=== PATIENT | female | born 1950 | race Caucasian/White ===

== ENCOUNTER 2022-10-12 06:09 | Observation (INO) | payer MEDICARE, OTHER, BC, SELFPAY ==
[2022-10-12] VITALS (13 sets, daily range): BP systolic 112–165; BP diastolic 69–89; PULSE 55–75; RESP 12–18; TEMP 36.3–37.1; O2SAT 94–96; BMI 30.2
--- NOTE | 2022-10-12 06:25 | XRR_ITS ---
PROCEDURE INFORMATION: Exam: XR Chest Exam date and time: 10/12/2022 6:32 AM Age: 72 years old Clinical indication: Cough and dyspnea; Additional info: Dyspnea/cough TECHNIQUE: Imaging protocol: Radiologic exam of the chest. Views: 1 view. COMPARISON: CT cervical spin wo con* [id number] 12/27/2018 10:15 AM FINDINGS: Tubes, catheters and devices: Monitor leads project over the chest. Lungs: No significant or acute findings. No consolidation. Pleural spaces: No significant costophrenic angle blunting. No pneumothorax. Heart/Mediastinum: Heart size within normal limits given the portable AP technique. Vasculature: Mild atherosclerotic tortuosity of the thoracic aorta. Bones/joints: No acute osseous abnormality. Soft tissues: Peripherally calcified bilateral breast implants. XR/XR chest 1V portable [id number] IMPRESSION: No acute abnormality demonstrated.
--- NOTE | 2022-10-12 06:35 | ED_ITS ---
HPI - Arrhythmia/Palpitations General: Chief Complaint: Arrhythmia/Palpitations Stated Complaint: FAST HEART RATE Time Seen by Provider: 10/12/22 06:13 Source: patient Mode of arrival: ambulatory History of Present Illness: 72-year-old female presents emergency room via EMS after waking up early this morning with chest discomfort. She had palpitations or rapid heart rate that she was very uncomfortable she ultimately called EMS. Today reports she had a rate of 170s. She was given adenosine x3 uncertain of the doses. She was then given 10 mg of IV Cardizem. Initial heart rate in the field was 170s with blood pressure in the 140 systolic. Patient reports previously having had a negative stress test. She is having no symptoms at this time. MD complaint: rapid heart beat, heart racing and palpitations Duration: constant Severity: moderate Associated symptoms: Deny anxiety, cough, diaphoresis, muscle cramps, nausea, paresthesias, pre-syncope, sense of impending doom, short of breath, syncope or vomiting Treatments prior to arrival: calcium channel emely (10) and adenosine (07/24/11) Review of Systems Const: Denies: fever(s), chills or diaphoresis Card: Reports: palpitations and irregular heart rhythm; Denies: chest pain, edema, swelling of feet/ankles, syncope or pre-syncope Resp: Denies: dyspnea, productive cough or non-productive cough GI: Denies: abdominal pain, nausea or vomiting : Denies: flank pain, difficulty voiding, dysuria, urinary frequency or urinary urgency Musc: Denies: neck pain, back pain or muscle cramps Skin/Breast: Denies: rash or pruritus Psych: Denies: anxiety Physical Exam Const: GENERAL APPEARANCE: cooperative and comfortable DIONICIO ENTATION/CONSCIOUSNESS: Yes awake, Yes oriented to person, Yes oriented to place and Yes oriented to time HENMT: COMMON NORMALS: normocephalic, atraumatic and hearing grossly normal bilaterally HEAD & SCALP: normocephalic and atraumatic Resp: COMMON NORMALS: normal respiratory effort, No retractions, No use of accessory muscles and clear to auscultation bilaterally AUSCULTATION: clear to auscultation bilaterally Cardio: COMMON NORMALS: No murmurs present (Cardio) RATE: bradycardic RHYTHM: abnormal rhythm irregularly irregular GI: COMMON NORMALS: Soft to palpation and No hepatosplenomegaly present AUSCULTATION: Yes normoactive bowel sounds PALPATION: Yes Soft to palpation, No Tenderness to palpation present (GI), No Guarding due to palpation present (GI) and Yes No hepatosplenomegaly present Extremity: COMMON NORMALS: normal to inspection, capillary refill normal, no clubbing, cyanosis or edema, no calf tenderness and no pedal edema Neuro: SENSORIUM/ORIENTATION: Yes oriented to person, Yes oriented to place and Yes oriented to time Skin: COMMON NORMALS: no rashes or lesions noted GENERAL SKIN EXAM: no ilya hes or lesions noted Course Vital Signs: Vital signs: Vital Signs Temperature 98.7 F 10/12/22 06:10 Pulse Rate 74 10/12/22 07:02 Respiratory Rate 16 10/12/22 07:02 Blood Pressure 117/81 10/12/22 07:02 Pulse Oximetry 95 10/12/22 07:02 MDM - Arrhythmia/Palpitations Medical Decision Making A-fib with RVR now bradycardic after receiving adenosine and Cardizem in route. Will admit for further evaluation monitoring for rate control determination for anticoagulation. Discussed with hospitalist orders written Medical Records I reviewed the patient's medical records. Lab Data I reviewed the patient's lab results. 10/12/22 06:18 10/12/22 07:06 Radiology Impressions Chest X-Ray 10/12/22 06:25 IMPRESSION: No acute abnormality demonstrated. Laboratory Results WBC 6.47 10^3/uL (3.29-11.43) 10/12/22 06:18 RBC 4.96 10^6/uL (3.85-5.65) 10/12/22 06:18 Hgb 14.30 g/dL (11.27-16.99) 10/12/22 06:18 Hct 43.2 % (36-47) 10/12/22 06:18 MCV 87.1 fl (85-98) 10/12/22 06:18 MCH 28.8 pg (27-33) 10/12/22 06:18 MCHC 33.1 g/dL (30-55) 10/12/22 06:18 RDW 12.7 % (12.1-15.1) 10/12/22 06:18 Plt Count 197 10^3/cmm (157-399) 10/12/22 06:18 MPV 11.7 fL (7.4-10.4) H 10/12/22 06:18 Neut % (Auto) 52.3 % 10/12/22 06:18 Lymph % (Auto) 34.6 % 10/12/22 06:18 [place] % (Auto) 8.8 % 10/12/22 06:18 Eos % (Auto) 2.9 % 10/12/22 06:18 Baso % (Auto) 0.9 % 10/12/22 06:18 Neut # (Auto) 3.38 10^3/uL (1.8-7.7) 10/12/22 06:18 Lymph # (Auto) 2.2 10^3/uL (0.8-4.8) 10/12/22 06:18 [place] # (Auto) 0.6 10^3/uL (0.2-0.9) 10/12/22 06:18 Eos # (Auto) 0.2 10^3/uL (0.0-0.8) 10/12/22 06:18 Baso # (Auto) 0.1 10^3/uL (0.0-0.1) 10/12/22 06:18 Nucleated RBC % (auto) 0 % 10/12/22 06:18 Nucleated RBCs # 0.0 /100WBC 10/12/22 06:18 Sodium 139 mmol/L (136-145) 10/12/22 07:06 Potassium 3.9 mmol/L (3.5-5.1) 10/12/22 07:06 Chloride 106 mmol/L (98-107) 10/12/22 07:06 Carbon Dioxide 23 mmol/L (22-29) 10/12/22 07:06 Anion Gap 13.9 (5-19) 10/12/22 07:06 BUN 21 mg/dL (8-23) 10/12/22 07:06 Creatinine 0.7 mg/dL (0.5-0.9) 10/12/22 07:06 GFR Calculation Not Reportable 10/12/22 07:06 Glucose 121 mg/dL (65-115) H 10/12/22 07:06 Calculated Osmolality 292 mOsm/kg (285-295) 10/12/22 07:06 Calcium 9.5 mg/dL (8.5-10.5) 10/12/22 07:06 Total Bilirubin 0.4 mg/dL (0.15-1.2) 10/12/22 07:06 AST 16 U/L (0-32) 10/12/22 07:06 ALT 16 U/L (0-33) 10/12/22 07:06 Alkaline Phosphatase 57 U/L (35-105) 10/12/22 07:06 Troponin T Baseline 25 ng/L (0-10) H 10/12/22 06:18 NT-Pro-B Natriuret Pep 161 pg/mL (0-125) H 10/12/22 07:06 Total Protein 6.2 g/dL (6.6-8.7) L 10/12/22 07:06 Albumin 4.2 g/dL (3.5-5.2) 10/12/22 07:06 Globulin 2.0 g/dL (1.3-4.6) 10/12/22 07:06 TSH 2.98 uIU/mL (0.27-4.20) 10/12/22 07:06 Discharge Plan Discharge Patient Disposition: Placed in Observation Clinical Impression: Atrial fibrillation Coding Level of Care Code ED [employer] Professional for [employer] Rosado
[2022-10-12 06:44] LABS: Basophils # 0.1 10^3/uL (0.0-0.1); Basophils % 0.9 %; Eosinophils # 0.2 10^3/uL (0.0-0.8); Eosinophils % 2.9 %; Hematocrit 43.2 % (36-47); Lymphocytes # 2.2 10^3/uL (0.8-4.8); Lymphocytes % 34.6 %; Mean Corpuscular HGB Conc 33.1 g/dL (30-55); Mean Corpuscular Hemoglobin 28.8 pg (27-33); Mean Corpuscular Volume 87.1 fl (85-98); Mean Platelet Volume 11.7 fL (7.4-10.4); Monocytes # 0.6 10^3/uL (0.2-0.9); Monocytes % 8.8 %; Neutrophils # 3.38 10^3/uL (1.8-7.7); Neutrophils % 52.3 %; Nucleated Red Blood Cells % 0 %; Platelet Count 197 10^3/cmm (157-399); Red Blood Count 4.96 10^6/uL (3.85-5.65); Red Cell Distribution Width 12.7 % (12.1-15.1); White Blood Count 6.47 10^3/uL (3.29-11.43)
[2022-10-12 07:15] LABS: Troponin(5th) Baseline 25 ng/L (0-10)
[2022-10-12 08:05] LABS: Alanine Aminotransferase 16 U/L (0-33); Albumin Level 4.2 g/dL (3.5-5.2); Alkaline Phosphatase 57 U/L (35-105); Anion Gap 13.9 (5-19); Aspartate Amino Transferase 16 U/L (0-32); Blood Urea Nitrogen 21 mg/dL (8-23); Calcium 9.5 mg/dL (8.5-10.5); Carbon Dioxide 23 mmol/L (22-29); Chloride 106 mmol/L (98-107); Creatinine Clr Calc Pharmacy 59.3201; Glucose 121 mg/dL (65-115); NT Pro B Type Natriuretic Pept 161 pg/mL (0-125); Osmolality Calculated 292 mOsm/kg (285-295); Potassium 3.9 mmol/L (3.5-5.1); Sodium 139 mmol/L (136-145); Thyroid Stimulating Hormone 2.98 uIU/mL (0.27-4.20); Total Bilirubin 0.4 mg/dL (0.15-1.2); Total Protein 6.2 g/dL (6.6-8.7)
--- NOTE | 2022-10-12 08:26 | ECG_ITS ---
[facility] Test Date: 2022-10-12 Pat Name: Lindsey Khan Department: Room: Gender: Female Vice President Lending: : 1950 Requested By: Antonio Caal Order Number: [id number] Yudy MD: Seth Ovalles M.D. Measurements Intervals [place] Rate: 53 P: 20 SD: 146 QRS: -15 QRSD: 86 T: 83 QT: 402 QTc: 380 Interpretive Statements SINUS BRADYCARDIA ANTEROSEPTAL MYOCARDIAL INFARCTION , OF INDETERMINATE AGE [40+ ms Q WAVE IN V1-V4] No previous ECG available for comparison Electronically Signed On 10-12-2022 14:45:08 CDT by Seth Ovalles M.D. [email or web address]
[2022-10-12 08:42] LABS: Troponin 5 2HR 35.67 ng/L (0-10)
[2022-10-12 08:47] LABS: Troponin 5 2HR Delta 10.67 ABS# (0-10)
[2022-10-12] MEDS: aspirin 81 mg Chew Tablet 324 MG PO (09:23)
[2022-10-12] MEDS: enoxaparin 80 mg/0.8 mL Syringe SUBCUT (09:24)
--- NOTE | 2022-10-12 09:25 | PC.NURSE ---
PT DENIES HAVING ANY SKIN ISSUES BESIDES SOME BUG BITES ON RIHT LEG. PT STATES SHE GOT INTO SOME TICKS.
[2022-10-12 12:33] LABS: Troponin 5 6HR 38.27 ng/L (0-10)
[2022-10-12 12:37] LABS: Troponin 5 6HR Delta 13.27 ng/L (0-12)
--- NOTE | 2022-10-12 12:39 | ECG_ITS ---
[facility] Test Date: 2022-10-12 Pat Name: Lindsey Khan Department: Room: 111 Gender: Female Anesthesiology Faculty: : 1950 Requested By: Antonio Caal Order Number: [id number] Yudy MD: Seth Ovalles M.D. Measurements Intervals [place] Rate: 60 P: 46 VA: 150 QRS: 66 QRSD: 93 T: -15 QT: 428 QTc: 429 Interpretive Statements SINUS RHYTHM POSSIBLE ANTERIOR MYOCARDIAL INFARCTION , OF INDETERMINATE AGE [30 ms Q WAVE IN V3/V4, OR R < 0.2 mV IN V4] Compared to ECG 10/12/2022 08:48:32 Sinus bradycardia no longer present Myocardial infarct finding still present Electronically Signed On 10-12-2022 14:44:53 CDT by Seth Ovalles M.D. [id number]
--- NOTE | 2022-10-12 12:43 | USCV_ITS ---
Lindsey Khan Age: 72 Gender: F : 1950 Exam Date: 10/12/2022 13:37 Ordering Phys: Brenda Mcgrath MD Technologist: Bonifacio Appiah Exam Location: [facility] [place] Indication: afib BP: 124 / 76 HR: 57 Rhythm: Sinus Technical Quality: Adequate MEASUREMENTS (Male / Female) Normal Values 2D ECHO LVOT Diameter 2.0 cm LV Ejection Fraction MOD 2C 68.3 % LV Ejection Fraction 2C AL 68.4 % LA Diameter 3.5 cm LA Width 3.9 cm LA Height 5.2 cm RA Width 3.1 cm RA Height 5.0 cm Aorta at Sinotubular Diameter 2.6 cm IVC Diameter 1.8 cm M-MODE Aortic Annulus Diameter 2.8 cm LA Ao Ratio MM 1.2 MV E Point Septal Separation 0.4 cm DOPPLER AV Peak Velocity 146.0 cm/s LVOT Peak Velocity 126.0 cm/s AV Area Cont Eq vti 2.5 cm squared AV Area Cont Eq pk 2.7 cm squared MV Peak Velocity 98.0 cm/s MV Area PHT 4.0 cm squared Mitral E to A Ratio 0.6 MV E' Velocity 28.0 cm/s Mitral E to MV E' Ratio 9.1 Mitral E to LV E' Lateral Ratio 8.6 Mitral E to LV E' Septal Ratio 9.8 TR Peak Velocity 279.2 cm/s TR Peak Gradient 31.2 mmHg TR Mean Velocity 202.3 cm/s TR Mean Gradient 19.2 mmHg TR Velocity Time Integral 76.7 cm Right Atrial Pressure 3.0 mmHg Pulmonary Artery Systolic Pressu 34.2 mmHg PV Peak Velocity 83.0 cm/s RV Acceleration Time 0.1 s RV Ejection Time 0.3 s RV AcT/ET 0.5 FINDINGS Left Ventricle Left ventricle is normal in size. LV systolic function is normal with EF of 55-60%. No regional wall motion abnormalities. Grade 1 diastolic dysfunction Right Ventricle Normal in size and function Right Atrium Normal in size Left Atrium Dilated Mitral Valve Structurally normal mitral valve. Trace mitral regurgitation. Aortic Valve Grossly normal. No significant stenosis. Mild to moderate aortic regurgitation. Tricuspid Valve Trace tricuspid regurgitation. Insufficient TR jet to calculate RVSP Pulmonic Valve Not well visualized. Mild pulmonic regurgitation. Pericardium Normal Aorta Normal in size IVC Appears to be normal CONCLUSIONS LV systolic function is normal with EF of 55 to 60%. Grade 1 diastolic dysfunction. Left atrial dilation Trace mitral regurgitation Mild to moderate aortic regurgitation Trace tricuspid regurgitation Mild pulmonic regurgitation No comparison studies are available Seth Ovalles MD (Electronically Signed) Final Date: 12 October 2022 16:47 S
[2022-10-12 13:09] LABS: Chol HDL Ratio 2.73 mg/dL (0.0-4.40); Cholesterol 180 mg/dL (0-200); HDL Cholesterol 66 mg/dL (60-100); LDL Cholesterol Calculated 95 mg/dL (50-129); LDL HDL Ratio 1.44 RATIO (0.00-3.22); Triglycerides 94 mg/dL (0-150)
[2022-10-12 13:27] LABS: Estmated Average Glucose 117; Hemoglobin A1C 5.7 % (4.0-6.0)
--- NOTE | 2022-10-12 15:19 | PM.HP ---
Providers/Chief Complaint Admitting Physician: Brenda Mcgrath MD Primary Care Provider: PETE Sutton Chief Complaint: FAST HEART RATE History of Present Illness Patient seen and examined at 11 AM this morning. Lindsey Khan is a 72 year old female with no significant known past medical history who presented to the emergency room today after developing chest discomfort and palpitations last night. Patient states that she was asleep, woke up and felt a funny sensation in her chest. Describes it as pressure. She tried to change her position but symptoms did not improve. Got up and walked to the bathroom hoping to find some relief but symptoms continued to persist. She felt that her upper body felt jellylike at this time and the back of her neck was hurting. EMS was called and upon arrival they found her to have a heart rate of 180 bpm and a pressure of 1 70-1 80 systolic. Rhythm was reportedly atrial fibrillation. She received 3 doses of adenosine and a push of Cardizem and was then brought into the emergency room. Here she was found to have sinus bradycardia with heart rate ranging between 45 to 58 bpm. She does not have any known past history of atrial fibrillation. Does not have any past history of CAD. She reports she has not had any similar episodes to the one last night, however in the past she has occasionally felt pinching sensation in her chest over the past year at least 2-3 times. On 1 such episode she was working outdoors and started experiencing chest discomfort and some palpitations. She came indoors and lay down to rest which appeared to have abated her symptoms. No history of hypertension. No history of diabetes mellitus or known dyslipidemia. No history of stroke. No history of CHF. She has not been recently ill. No URI type symptoms. No cough chest pain dyspnea. No lower extremity edema. No past history of PE. Symptoms appear to have resolved with controlling her heart rate. Review of Systems General: Reports: 10 or more systems reviewed and unremarkable except in HPI and below Const: Denies: fever(s), chills or body aches Eyes: Denies: change in vision, blurry vision or photophobia ENMT: Reports: hoarseness; Denies: throat pain, enlarged tonsils, odynophagia or nasal congestion Card: Denies: chest pain, palpitations, irregular heart rhythm, edema, swelling of feet/ankles, lightheadedness, pre-syncope, dyspnea on exertion or orthopnea Resp: Denies: dyspnea, productive cough, non-productive cough, wheezing, stridor, pain on inspiration, change in phlegm color, hemoptysis or chest congestion GI: Denies: abdominal pain, nausea, vomiting, hematemesis, coffee ground emesis, dysphagia, heartburn, diarrhea, constipation, GI cramping, change in stool character, hematochezia or melena : Denies: flank pain, difficulty voiding, dysuria, urinary frequency, urinary urgency, urinary hesitancy or hematuria Musc: Denies: neck pain, back pain, extremity pain, joint swelling, joint warmth or deformity Neuro: Denies: headache(s), numbness in extremities, weakness in extremities, sensory changes, difficulty walking, frequent falls, dizziness, vertigo, behavioral changes, Slurred speech present or seizure-like activity Psych: Denies: anxiety, depression, suicidal ideation or homicidal ideation Endo: Denies: polyuria, polydipsia, tired all the time, cold intolerance or hot flashes Jayy/Lymph: Denies: easy bruising or easy bleeding Medications/Allergies Home Medications Medication Instructions Recorded Confirmed Last Taken Type aspirin 81 mg tablet,delayed 81 mg PO DAILY 10/12/22 10/12/22 10/11/22 History release multivitamin 1 tab PO DAILY 10/12/22 10/12/22 10/11/22 History Allergies Allergy/AdvReac Type Severity Reaction Status Date / Time No Known Allergies Allergy Unverified 10/12/22 07:17 Vitals/I&O/Wt Last Vital Signs Temp 98.7 F 10/12/22 06:10 Pulse 58 L 10/12/22 14:14 Resp 12 10/12/22 12:14 BP 124/76 10/12/22 12:14 Pulse Ox 96 10/12/22 14:14 O2 Del Method Room Air 10/12/22 14:14 Weight last 48 hrs Weight 74.843 kg Physical Exam Narrative: General: No acute distress, AO x3 HEENT: PERRLA, pupils bilaterally equal and reactive, pallors not present Chest: Normal vesicular breath sounds, no added sounds, equal good air entry bilaterally CVS: S1-S2 regular, no murmurs, no tachycardia, no gallops, no rubs Abdomen: Soft, nontender, no organomegaly, bowel sounds present Neuro: No focal deficits, no facial deformity, AO x3, power 5/5 in all limbs Data 10/12/22 06:18 10/12/22 07:06 Other Labs: [facility] [address] [place] [address] XRay Report Signed Patient: Lindsey Khan Unit #: [id number] : 1950 Age/Sex: 72 / F ADM Date: 10/12/22 Loc: ER Room/Bed: Attending Dr: Ordering Provider/Ordering MD: Antonio Dunn DO Date of Service: 10/12/22 Procedure(s): XR chest 1V portable [id number] Accession Number(s): [id number] Report Number: [id number] PROCEDURE INFORMATION: Exam: XR Chest Exam date and time: 10/12/2022 6:32 AM Age: 72 years old Clinical indication: Cough and dyspnea; Additional info: Dyspnea/cough TECHNIQUE: Imaging protocol: Radiologic exam of the chest. Views: 1 view. COMPARISON: CT cervical spin wo con* [id number] 12/27/2018 10:15 AM FINDINGS: Tubes, catheters and devices: Monitor leads project over the chest. Lungs: No significant or acute findings. No consolidation. Pleural spaces: No significant costophrenic angle blunting. No pneumothorax. Heart/Mediastinum: Heart size within normal limits given the portable AP technique. Vasculature: Mild atherosclerotic tortuosity of the thoracic aorta. Bones/joints: No acute osseous abnormality. Soft tissues: Peripherally calcified bilateral breast implants. XR/XR chest 1V portable [id number] IMPRESSION: No acute abnormality demonstrated. ? A&P Assessment and plan (1) Atrial fibrillation: Patient presenting today with new onset A-fib, presenting with chest discomfort, palpitations. A-fib detected in the field in route to the ER she received 3 pushes of adenosine and then 1 dose of 10 mg IV Cardizem following which she appears to have converted into sinus rhythm with sinus bradycardia. Currently heart rate ranging between 50 to 58 bpm. Given that this is new onset A-fib, will admit patient to the [facility] for monitoring on telemetry. Patient does report intermittent episodes of chest discomfort and palpitations over the past year, possible that she may be in paroxysmal A-fib causing the symptoms. Check echocardiogram Troponin series shows a baseline troponin of 25, at 2 hours trending up to 35 with a delta of 10 pending 6-hour troponin currently.. EKG does not show any acute ST-T wave changes consistent with VT. Suspect that this troponin leak is related to type II VT from elevated heart rate. Chest x-ray without any pulmonary edema, no gross signs of heart failure. Started on Lovenox 1 mg/kg every 12 hours while pending troponin trend. Patient's [id number] score is currently at 2 (one-point each for age 65-74 and female.), Correlating with a low moderate risk, may need to consider antiplatelet or anticoagulation at discharge. Low suspicion for PE given that patient is saturating well on room air, chest pain appears to have resolved with resolution of A-fib. (2) Elevated troponin: Suspect related to tachyarrhythmia. Would continue to monitor for any recurrence of A-fib on telemetry monitoring. No classical historical risk factors, no known history of diabetes dyslipidemia or hypertension. We will trend blood pressure in the hospital. Check HbA1c and lipid panel for ischemic disease risk stratification Pending 6-hour trend currently In the interim on full dose Lovenox. Received aspirin 325 mg x 1, continue aspirin 81 mg p.o. daily. Attestations Medical Necessity Statement*: Anticipate less than 2 midnight stay for evaluation of new onset atrial fibrillation. Coding Level of Care Code Acute Code for Chg Fwd Moderate MDM includes number and complexity of problems actively addressed during encounter, amount and/or complexity of data reviewed/ordered and described risk of complication, morbidity or mortality of management as documented Diagnoses Atrial fibrillation I48.91 Elevated troponin R77.8
--- NOTE | 2022-10-12 16:48 | P.CONIM_ITS ---
Providers/Reason For Consult Consulting Physician/Specialty*: Seth Ovalles MD/ Cardiology Reason for Consult*: Atrial fibrillation with RVR/Troponin elevation Requesting Physician: Dr Mcgrath Attending Physician: Brenda Mcgrath MD Primary Care Provider: PETE Sutton History of Present Illness History of Present Illness Lindsey Khan is a 72 year old female with no prior cardiac history who presented to hospital with palpitations. According to patient she woke up last night with palpitations and chest pain. She has been having pinching sensation in the chest for the last few weeks. However this was significant discomfort. She was found to be in A-fib with RVR by EMS. She was given Cardizem and adenosine. With the time she came to the ER she had converted to normal sinus rhythm. EKGs demonstrates normal sinus rhythm. She did have elevated troponin which trended from baseline of 25 to 38 at 6 hours. No more chest pain episodes. Review of Systems General: Reports: 10 or more systems reviewed and unremarkable except in HPI and below Const: Denies: fever(s), chills or body aches Eyes: Denies: change in vision, blurry vision or photophobia ENMT: Reports: hoarseness; Denies: throat pain, enlarged tonsils, odynophagia or nasal congestion Card: Denies: chest pain, palpitations, irregular heart rhythm, edema, swelling of feet/ankles, lightheadedness, pre-syncope, dyspnea on exertion or or thopnea Resp: Denies: dyspnea, productive cough, non-productive cough, wheezing, stridor, pain on inspiration, change in phlegm color, hemoptysis or chest congestion GI: Denies: abdominal pain, nausea, vomiting, hematemesis, coffee ground e mesis, dysphagia, heartburn, diarrhea, constipation, GI cramping, change in stool character, hematochezia or melena : Denies: flank pain, difficulty voiding, dysuria, urinary frequency, urinary urgency, urinary hesitancy or hematuria Musc: Denies: neck pain, back pain, extremity pain, joint swelling, joint warmth or deformity Neuro: Denies: headache(s), numbness in extremities, weakness in extremities, sensory changes, difficulty walking, frequent falls, dizziness, vertigo, behavioral changes, Slurred speech present or seizure-like activity Psych: Denies: anxiety, depression, suicidal ideation or homicidal ideation Endo: Denies: polyuria, polydipsia, tired all the time, cold intolerance or hot flashes Jayy/Lymph: Denies: easy bruising or easy bleeding Medications/Allergies Home Medications Medication Instructions Recorded Confirmed Last Taken Type aspirin 81 mg tablet,delayed 81 mg PO DAILY 10/12/22 10/12/22 10/11/22 History release multivitamin 1 tab PO DAILY 10/12/22 10/12/22 10/11/22 History Allergies Allergy/AdvReac Type Severity Reaction Status Date / Time No Known Allergies Allergy Unverified 10/12/22 07:17 Vitals/I&O/Wt Last Vital Signs Temp 98.7 F 10/12/22 06:10 Pulse 58 L 10/12/22 14:14 Resp 12 10/12/22 12:14 BP 124/76 10/12/22 12:14 Pulse Ox 96 10/12/22 14:14 O2 Del Method Room Air 10/12/22 14:14 Weight last 48 hrs Weight 165 lb Physical Exam Narrative: GENERAL: Patient is alert, awake and oriented x3. [] NECK: No jugular vein distension. [] HEENT: No cyanosis. No icterus. No pallor. [] HEART: Regular S1 and S2. No murmur, rub or gallop. [] LUNGS: Clear to auscultate bilaterally. [] CENTRAL NERVOUS SYSTEM: Grossly nonfocal. [] EXTREMITIES: Lower extremities with 1+ edema bilaterally. Pulses palpable in the lower extremities, both dorsalis pedis and posterior tibial. [] Data 10/13/22 03:42 10/13/22 03:42 A&P Assessment and plan (1) Atrial fibrillation: (2) Elevated troponin: Plan Patient has presented with A-fib with RVR. Now has converted back to normal sinus rhythm. Her blood pressure is elevated. Her [id number] score is 3. Continue IV anticoagulation for now. She has troponin elevation. Likely secondary to demand ischemia however she had chest discomfort during rapid heart rates. We will proceed with stress test. Hold oral anticoagulation until stress test is performed. Echocardiogram ordered. Can be started on low dose metoprolol Thank you for involving us with care of this patient. We will continue to follow. Please call with questions. Consult Attestations Medical Necessity Statement: Care expected to cross 2 midnights. Coding Level of Care Code Acute Code for Chg Fwd Diagnoses Atrial fibrillation I48.91 Elevated troponin R77.8
[2022-10-12 17:13] LABS: D Dimer 0.34 ug/mLFEU (0-0.59)
[2022-10-12] MEDS: acetaminophen 325 mg Tablet 650 MG PO (17:49)
--- NOTE | 2022-10-12 18:11 | PM.PN ---
Vitals/I&O/Wt Last Vital Signs Temp 98.7 F 10/12/22 06:10 Pulse 58 L 10/12/22 14:14 Resp 12 10/12/22 12:14 BP 124/76 10/12/22 12:14 Pulse Ox 96 10/12/22 14:14 O2 Del Method Room Air 10/12/22 14:14 Weight last 48 hrs Weight 74.843 kg Data 10/12/22 06:18 10/12/22 07:06 Coding Level of Care Code 32871 Diagnoses
[2022-10-12] MEDS: enoxaparin 80 mg/0.8 mL Syringe 70 MG SUBCUT (20:24)
[2022-10-13] VITALS (10 sets, daily range): BP systolic 133–168; BP diastolic 77–91; PULSE 57–72; RESP 12–22; TEMP 36.4–36.7; O2SAT 94–97
[2022-10-13] MEDS: acetaminophen 325 mg Tablet 650 MG PO (02:07)
[2022-10-13] MEDS: polyethylene glycol 3350 Pkt 17 gm PO (02:54)
[2022-10-13 04:08] LABS: Basophils # 0.1 10^3/uL (0.0-0.1); Eosinophils # 0.3 10^3/uL (0.0-0.8); Eosinophils % 4.2 %; Hematocrit 40.5 % (36-47); Lymphocytes # 2.3 10^3/uL (0.8-4.8); Lymphocytes % 38.1 %; Mean Corpuscular HGB Conc 32.8 g/dL (30-55); Mean Corpuscular Hemoglobin 29.5 pg (27-33); Mean Corpuscular Volume 89.8 fl (85-98); Mean Platelet Volume 10.9 fL (7.4-10.4); Monocytes # 0.5 10^3/uL (0.2-0.9); Monocytes % 8.1 %; Neutrophils # 2.97 10^3/uL (1.8-7.7); Neutrophils % 48.4 %; Nucleated Red Blood Cells % 0 %; Platelet Count 191 10^3/cmm (157-399); Red Blood Count 4.51 10^6/uL (3.85-5.65); Red Cell Distribution Width 12.9 % (12.1-15.1); White Blood Count 6.14 10^3/uL (3.29-11.43)
[2022-10-13 04:24] LABS: Alanine Aminotransferase 11 U/L (0-33); Albumin Level 3.9 g/dL (3.5-5.2); Alkaline Phosphatase 51 U/L (35-105); Anion Gap 12.4 (5-19); Aspartate Amino Transferase 15 U/L (0-32); Blood Urea Nitrogen 18 mg/dL (8-23); Carbon Dioxide 25 mmol/L (22-29); Chloride 109 mmol/L (98-107); Creatinine Clr Calc Pharmacy 59.3201; Globulin 2.3 g/dL (1.3-4.6); Glucose 99 mg/dL (65-115); Osmolality Calculated 296 mOsm/kg (285-295); Potassium 4.4 mmol/L (3.5-5.1); Sodium 142 mmol/L (136-145); Total Bilirubin 0.3 mg/dL (0.15-1.2); Total Protein 6.2 g/dL (6.6-8.7)
[2022-10-13] MEDS: aspirin 81 mg EC Tablet PO (09:04)
[2022-10-13] MEDS: pantoprazole DR 40 mg Tablet PO (09:04)
[2022-10-13] MEDS: enoxaparin 80 mg/0.8 mL Syringe 70 MG SUBCUT ×2 (09:04→20:52)
--- NOTE | 2022-10-13 09:30 | PM.PN ---
Subjective Subjective: No new complaints today. Review of telemetry shows no further episodes of A-fib. Heart rate ranging between 66 to 80 bpm. 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 No past history of known hypertension. Medications: Reviewed: Yes Vitals/I&O/Wt Last Vital Signs Temp 97.5 F L 10/13/22 16:07 Pulse 66 10/13/22 16:07 Resp 17 10/13/22 16:07 BP 164/89 10/13/22 16:07 Pulse Ox 96 10/13/22 16:07 O2 Del Method Room Air 10/13/22 16:07 10/13/22 10/13/22 10/13/22 06:59 14:59 22:59 Intake Total 300 / 300 Balance 300 / 300 Weight last 48 hrs Weight 74.843 kg Physical Exam Narrative: General: No acute distress, AO x3 HEENT: PERRLA, pupils bilaterally equal and reactive, pallors not present Chest: Normal vesicular breath sounds, no added sounds, equal good air entry bilaterally CVS: S1-S2 regular, no murmurs, no tachycardia, no gallops, no rubs Abdomen: Soft, nontender, no organomegaly, bowel sounds present Neuro: No focal deficits, no facial deformity, AO x3, power 5/5 in all limbs Data 10/13/22 03:42 10/13/22 03:42 A&P Assessment and plan (1) Atrial fibrillation: Patient presenting with new onset A-fib, presenting with chest discomfort, palpitations. Patient does report intermittent episodes of chest discomfort and palpitations over the past year, possible that she may be in paroxysmal A-fib causing the symptoms. Troponin trend baseline troponin of 25---> 35--> 38. EKG does not show any acute ST-T wave changes consistent with UT. Suspect that this troponin leak is related to type II UT from elevated heart rate, however given intermittent chest discomfort over the past year, cannot rule out angina as potentially contributing Cardiology consult appreciated. Plan for stress test in the a.m. continue Lovenox, transition to oral anticoagulation at discharge (2) Elevated troponin: Plan stress test in the morning Attestations Medical Necessity Statement*: Plan stress test in a.m. Coding Level of Care Code Acute Code for [facility] Diagnoses Atrial fibrillation I48.91 Elevated troponin R77.8
--- NOTE | 2022-10-13 11:50 | PC.NURSE ---
Amlodipine held on patient due to blood pressure improving this morning. Dr. Mcgrath instructed pattern chart writer to hold amlodipine until systolic was above 160.
--- NOTE | 2022-10-13 14:49 | PM.PN ---
Subjective Subjective: Patient is overall doing well. No chest pain. She is staying in normal sinus rhythm Vitals/I&O/Wt Last Vital Signs Temp 98.1 F 10/13/22 11:10 Pulse 67 10/13/22 11:10 Resp 17 10/13/22 11:10 BP 155/91 10/13/22 11:10 Pulse Ox 96 10/13/22 11:10 O2 Del Method Room Air 10/13/22 11:10 10/12/22 10/13/22 10/13/22 22:59 06:59 14:59 Intake Total 300 / 300 Balance 300 / 300 Weight last 48 hrs Weight 165 lb Physical Exam Narrative: GENERAL: Patient is alert, awake and oriented x3. [] NECK: No jugular vein distension. [] HEENT: No cyanosis. No icterus. No pallor. [] HEART: Regular S1 and S2. No murmur, rub or gallop. [] LUNGS: Clear to auscultate bilaterally. [] CENTRAL NERVOUS SYSTEM: Grossly nonfocal. [] EXTREMITIES: Lower extremities with 1+ edema bilaterally. Pulses palpable in the lower extremities, both dorsalis pedis and posterior tibial. [] Data 10/13/22 03:42 10/13/22 03:42 A&P Assessment and plan (1) Atrial fibrillation: (2) Elevated troponin: (3) Hypertension: Plan Continue IV anticoagulation for now. Plan for stress test tomorrow. Rhythm is staying stable. Can uptitrate amlodipine to 10 mg daily. Can also add low-dose metoprolol. Echocardiogram shows normal LV systolic function Thank you for involving us with care of this patient. We will continue to follow. Please call with questions. Attestations Medical Necessity Statement*: Care expected to cross 2 midnights. Coding Level of Care Code Acute Code for [facility] Fwd Diagnoses Atrial fibrillation I48.91 Elevated troponin R77.8 Hypertension I10
[2022-10-14] VITALS (7 sets, daily range): BP systolic 101–196; BP diastolic 59–104; PULSE 60–77; RESP 13–23; TEMP 36.6–36.7; O2SAT 93–97
--- NOTE | 2022-10-14 | ECG_ITS ---
[facility] Test Date: 2022-10-14 Pat Name: Lindsey Khan Department: Room: 111 Gender: Female Finisher Plate: Sheridan Lopez : 1950 Requested By: Brenda Mcgrath Order Number: [id number] Yudy MD: Seth Ovalles M.D. Interpretive Statements NAME OF STUDY: LEXISCAN SESTAMIBI STRESS TEST INDICATION: [Chest Pain] Procedure: At the baseline, the blood pressure was 151/113 mmHg with a heart rate of 63 bpm. The electrocardiogram showed normal sinus rhythm, normal axis with normal ST and T's. The Lexiscan was infused over a period of 20 seconds. A total of 0.4 mg of Lexiscan was infused. The stress phase was continued for a total of 5 minutes. Heart rate was at the end of stress phase was 79 bpm and a blood pressure of 167/105 mmHg. The EKG at the peak infusion revealed normal sinus rhythm with no significant ST-T wave changes. Sestamibi was injected 20 seconds after the Lexiscan infusion. Blood pressure at the end of recovery phase was 175/104 mmHg with a heart rate of 75 bpm. Conclusion: 1. Normal EKG response to Lexiscan infusion 2. No Lexiscan induced chest pain or cardiac arrhythmia. 3. Normal blood pressure and heart rate response. 4. Sestamibi/sestamibi perfusion scan pending; see separate report. Electronically Signed On 10-28-2022 12:21:30 CDT by Seth Ovalles M.D. [email or web address]
--- NOTE | 2022-10-14 06:00 | NMCV_ITS ---
NM swati perf SPECT r/s* [id number] Lindsey Khan Age: 72 Gender: F : 1950 Exam Date: 10/14/2022 06:00 Ordering Phys: Brenda Mcgrath MD Technologist: TROY Cordero Exam Location: [facility] Indications: CHEST PAIN STRESS TEST Please see separate stress test report in [facility] for full findings IMAGE PROTOCOL Rest/Stress 1 Lexiscan Day Radiopharmaceutical Dose (mCi) Administration Site Administered by Rest: Tc-99m 10.6 IV TROY Haque Sestamibi Stress:Tc-99m 32.7 IV TROY Haque Sestamibi Rest: 14-Oct-2022 60 Discovery 630 Stress: 14-Oct-2022 30 Discovery 630 0.4mg Lexiscan. Supine position only as patient was unable to lay prone. SPECT RESULTS Technical Quality: Good Raw Data Analysis: Breast attenuation, Breast Implants Image Corrections: No attenuation or motion correction applied Summed Stress Score: 3 Summed Rest Score: 2 Summed Difference Score: 2 PERFUSION FINDINGS Small in size, partially reversible perfusion defects noted in apical and apical lateral nelson. This is consistent with small sized areas of prior infarct minimal lo-infarct ischemia in LAD and left circumflex artery territories. Attenuation artifact can not be ruled out. FUNCTIONAL RESULTS (calculated via Gated SPECT) Stress Image LV EF (%): 75 Stress EDV (mL):72 TID: 1.08 Stress ESV (mL):18 FUNCTIONAL FINDINGS: There is normal left ventricular systolic function. IMPRESSIONS 1. Small sized areas of prior infarct with minimal lo-infarct ischemia seen in the LAD and Left circumflex artery distributions. Attenuation artifact can not be ruled out. Clinical correlation is required. 2. LV systolic function is normal Seth Ovalles MD (Electronically Signed) Final Date: 14 October 2022 08:47 S
[2022-10-14] MEDS: regadenoson 0.4 Mg/5 ml Syringe IVP (07:26)
--- NOTE | 2022-10-14 08:33 | P.PN_ITS ---
Subjective Subjective: Patient doing well. Denies chest pain. Vitals/I&O/Wt Last Vital Signs Temp 97.9 F 10/14/22 04:00 Pulse 61 10/14/22 05:31 Resp 13 10/14/22 04:00 BP 167/91 10/14/22 04:00 Pulse Ox 97 10/14/22 04:00 O2 Del Method Room Air 10/14/22 00:00 10/13/22 10/14/22 10/14/22 22:59 06:59 14:59 Intake Total 360 / 360 Balance 360 / 360 Physical Exam Narrative: GENERAL: Patient is alert, awake and oriented x3. [] NECK: No jugular vein distension. [] HEENT: No cyanosis. No icterus. No pallor. [] HEART: Regular S1 and S2. No murmur, rub or gallop. [] LUNGS: Clear to auscultate bilaterally. [] CENTRAL NERVOUS SYSTEM: Grossly nonfocal. [] EXTREMITIES: Lower extremities with 1+ edema bilaterally. Pulses palpable in the lower extremities, both dorsalis pedis and posterior tibial. [] Data 10/13/22 03:42 10/13/22 03:42 A&P Assessment and plan (1) Atrial fibrillation: (2) Elevated troponin: (3) Hypertension: Plan Patient's stress test showed small sized prior infarct we will lo-infarct ischemia in LAD and left circumflex artery territories. Medical management advised. Continue anticoagulation with Eliquis. Continue metoprolol and atorvastatin. Thank you for involving us with care of this patient. Patient is stable to be discharged from cardiology standpoint. Attestations Medical Necessity Statement*: Care expected to cross 2 midnights Coding Level of Care Code Acute Code for [facility] Fwd Diagnoses Atrial fibrillation I48.91 Elevated troponin R77.8 Hypertension I10
[2022-10-14] MEDS: aspirin 81 mg EC Tablet PO (08:38)
[2022-10-14] MEDS: amlodipine 5 mg Tablet PO ×2 (08:38→09:42)
[2022-10-14] MEDS: pantoprazole DR 40 mg Tablet PO (08:39)
[2022-10-14] MEDS: enoxaparin 80 mg/0.8 mL Syringe 70 MG SUBCUT (09:42)
[2022-10-14] MEDS: metoprolol tartrate 25 mg Tablet PO (09:42)
--- NOTE | 2022-10-14 12:45 | PM.DCS ---
Discharge Providers Date of Admission: 10/12/22 08:59 Date of Discharge: October 14, 2022 Attending Provider at Admission: Brenda Mcgrath MD Attending Provider at Discharge: Turner Landry Primary Care Provider: PETE Sutton Diagnoses at Discharge Discharge Diagnosis (1) Atrial fibrillation: Status: Acute (2) Elevated troponin: Status: Acute (3) Hypertension: Status: Acute Reason for Visit Reason for Visit: FAST HEART RATE Brief History: Lindsey Khan is a 72 year old female with no significant known past medical history who presented to the emergency room today after developing chest discomfort and palpitations last night.? Patient states that she was asleep, woke up and felt a funny sensation in her chest.? Describes it as pressure.? She tried to change her position but symptoms did not improve.? Got up and walked to the bathroom hoping to find some relief but symptoms continued to persist.? She felt that her upper body felt jellylike at this time and the back of her neck was hurting.? EMS was called and upon arrival they found her to have a heart rate of 180 bpm and a pressure of 1 70-1 80 systolic.? Rhythm was reportedly atrial fibrillation.? She received 3 doses of adenosine and a push of Cardizem and was then? brought into the emergency room.? Here she was found to have sinus bradycardia with heart rate ranging between 45 to 58 bpm. She does not have any known past history of atrial fibrillation.? Does not have any past history of CAD.? She reports she has not had any similar episodes to the one last night, however in the past she has occasionally felt pinching sensation in her chest over the past year at least 2-3 times. On 1 such episode she was working outdoors and started experiencing chest discomfort and some palpitations.? She came indoors and lay down to rest which appeared to have abated her symptoms. No history of hypertension.? No history of diabetes mellitus or known dyslipidemia. No history of stroke.? No history of CHF. She has not been recently ill.? No URI type symptoms.? No cough chest pain dyspnea.? No lower extremity edema.? No past history of PE. Symptoms appear to have resolved with controlling her heart rate. Hospital Course Hospital Course She was assessed by cardiology. She was started on low-dose metoprolol, with elevated blood pressure also continued on amlodipine dose which was later increased to 10 mg. Started on anticoagulation. Underwent additional assessment by TTE and stress test. TTE with normal ejection fraction, grade 1 diastolic function, left atrial dilation. Trace MVR. Mild to moderate AVR. Trace TVR. Mild PVR. Stress test with small size area of prior infarct with minimal lo-infarct ischemia seen in LAD and LCx distribution. Attenuation artifact cannot be ruled out. Her condition and findings discussed by her with cardiology, recommendation to continue optimize coronary risk factors, continue on Eliquis, for now without aspirin, statin, continue to monitor and optimize blood pressures. Continue on amlodipine 10 mg. Metoprolol 25 mg twice daily. Heart rates remain controlled, as heart rates at baseline are in the slow side into the- 50s-60s, monitoring analyst is requested as well. Physical Exam Narrative: Sitting up at bedside. Reports he is doing well. Denies any issues currently. Has discussed with cardiology, plans for her to return home today. Const: COMMON NORMALS: patient oriented x3 and alert GENERAL APPEARANCE: cooperative ORIENTATION/CONSCIOUSNESS: Yes awake HENMT: COMMON NORMALS: oropharynx normal Neck/C-Spine: COMMON NORMALS: no JVD Resp: COMMON NORMALS: normal respiratory effort and clear to auscultation bilaterally AUSCULTATION: clear to auscultation bilaterally Cardio: COMMON NORMALS: no JVD, regular rhythm, S1 normal heart sound present, S2 normal heart sound present and No murmurs present (Cardio) RHYTHM: regular rhythm HEART SOUNDS: S1 normal heart sound present and S2 normal heart sound present GI: COMMON NORMALS: Normal to inspection, nondistended, normoactive bowel sounds present, Soft to palpation and non-tender PALPATION: Yes Soft to palpation Extremity: COMMON NORMALS: no joint enlargement and no pedal edema Neuro: COMMON NORMALS: patient oriented x3 and moves all extremities SENSORIUM/ORIENTATION: Yes alert Skin: COMMON NORMALS: no rashes or lesions noted GENERAL SKIN EXAM: no rashes or lesions noted Discharge Data Studies Completed and Pending Completed Studies During Hospitalization Category Date Time Status Cardiac Stress Test MIBI [Sestamibi Stress Test Request Exams 10/14/22 06:43 Draft ] Routine XR chest 1V portable [id number] Stat Exams 10/12/22 06:25 Completed NM swati perf SPECT r/s* [id number] Routine Nuc Med 10/14/22 06:00 Completed CV. echo complete* [id number] Routine Ultrasound 10/12/22 12:43 Completed Pending at discharge Category Date Time Status Cardiac Stress Test MIBI [Sestamibi Stress Test Request Exams 10/13/22 09:27 Stop Req ] Routine Radiology Impressions Chest X-Ray 10/12/22 06:25 IMPRESSION: No acute abnormality demonstrated. Laboratory Results WBC 6.14 10^3/uL (3.29-11.43) 10/13/22 03:42 RBC 4.51 10^6/uL (3.85-5.65) 10/13/22 03:42 Hgb 13.30 g/dL (11.27-16.99) 10/13/22 03:42 Hct 40.5 % (36-47) 10/13/22 03:42 MCV 89.8 fl (85-98) 10/13/22 03:42 MCH 29.5 pg (27-33) 10/13/22 03:42 MCHC 32.8 g/dL (30-55) 10/13/22 03:42 RDW 12.9 % (12.1-15.1) 10/13/22 03:42 Plt Count 191 10^3/cmm (157-399) 10/13/22 03:42 MPV 10.9 fL (7.4-10.4) H 10/13/22 03:42 Neut % (Auto) 48.4 % 10/13/22 03:42 Lymph % (Auto) 38.1 % 10/13/22 03:42 Clinch % (Auto) 8.1 % 10/13/22 03:42 Eos % (Auto) 4.2 % 10/13/22 03:42 Baso % (Auto) 1.0 % 10/13/22 03:42 Neut # (Auto) 2.97 10^3/uL (1.8-7.7) 10/13/22 03:42 Lymph # (Auto) 2.3 10^3/uL (0.8-4.8) 10/13/22 03:42 Clinch # (Auto) 0.5 10^3/uL (0.2-0.9) 10/13/22 03:42 Eos # (Auto) 0.3 10^3/uL (0.0-0.8) 10/13/22 03:42 Baso # (Auto) 0.1 10^3/uL (0.0-0.1) 10/13/22 03:42 Nucleated RBC % (auto) 0 % 10/13/22 03:42 Nucleated RBCs # 0.0 /100WBC 10/13/22 03:42 D-Dimer 0.34 ug/mLFEU (0-0.59) 10/12/22 16:34 Sodium 142 mmol/L (136-145) 10/13/22 03:42 Potassium 4.4 mmol/L (3.5-5.1) 10/13/22 03:42 Chloride 109 mmol/L (98-107) H 10/13/22 03:42 Carbon Dioxide 25 mmol/L (22-29) 10/13/22 03:42 Anion Gap 12.4 (5-19) 10/13/22 03:42 BUN 18 mg/dL (8-23) 10/13/22 03:42 Creatinine 0.7 mg/dL (0.5-0.9) 10/13/22 03:42 GFR Calculation Not Reportable 10/13/22 03:42 Glucose 99 mg/dL (65-115) 10/13/22 03:42 Estimat Average Glucose 117 10/12/22 06:18 Hemoglobin A1c 5.7 % (4.0-6.0) 10/12/22 06:18 Calculated Osmolality 296 mOsm/kg (285-295) H 10/13/22 03:42 Calcium 9.0 mg/dL (8.5-10.5) 10/13/22 03:42 Total Bilirubin 0.3 mg/dL (0.15-1.2) 10/13/22 03:42 AST 15 U/L (0-32) 10/13/22 03:42 ALT 11 U/L (0-33) 10/13/22 03:42 Alkaline Phosphatase 51 U/L (35-105) 10/13/22 03:42 Troponin T Baseline 25 ng/L (0-10) H 10/12/22 06:18 Troponin T 120 Minute 35.67 ng/L (0-10) H 10/12/22 08:18 Delta Troponin T 10.67 ABS# (0-10) H* 10/12/22 08:18 Troponin T Hi Sens 6Hr 38.27 ng/L (0-10) H 10/12/22 12:00 Troponin T Hi Sens 6Hr Delta 13.27 ng/L (0-12) H* 10/12/22 12:00 NT-Pro-B Natriuret Pep 161 pg/mL (0-125) H 10/12/22 07:06 Total Protein 6.2 g/dL (6.6-8.7) L 10/13/22 03:42 Albumin 3.9 g/dL (3.5-5.2) 10/13/22 03:42 Globulin 2.3 g/dL (1.3-4.6) 10/13/22 03:42 Triglycerides 94 mg/dL (0-150) 10/12/22 07:16 Cholesterol 180 mg/dL (0-200) 10/12/22 07:16 LDL Cholesterol, Calc 95 mg/dL (50-129) 10/12/22 07:16 HDL Cholesterol 66 mg/dL (60-100) 10/12/22 07:16 LDL/HDL Ratio 1.44 RATIO (0.00-3.22) 10/12/22 07:16 Cholesterol/HDL Ratio 2.73 mg/dL (0.0-4.40) 10/12/22 07:16 TSH 2.98 uIU/mL (0.27-4.20) 10/12/22 07:06 Vitals Last Vital Signs Temp 97.9 F 10/14/22 12:00 Pulse 60 10/14/22 12:00 Resp 15 10/14/22 12:00 BP 140/76 10/14/22 12:00 Pulse Ox 94 10/14/22 12:00 O2 Del Method Room Air 10/14/22 12:00 Discharge Plan Discharge Patient Disposition: Home Condition: Stable Prescriptions: New atorvastatin 40 mg tablet 40 mg PO DAILY Qty: 90 0RF Eliquis 5 mg tablet 5 mg PO BID Qty: 180 0RF metoprolol tartrate 25 mg tablet 25 mg PO BID Qty: 180 0RF amlodipine 10 mg tablet 10 mg PO DAILY Qty: 90 0RF Continued multivitamin Tablet 1 tab PO DAILY Discontinued aspirin [Aspir-81] 81 mg Tablet,Delayed Release (Dr/Ec) 81 mg PO DAILY Discharge Orders: Discharge Order (Routine); Ordered 10/14/22 Ordered By: Turner Landry Other Ambulatory Orders: MCT/Event Monitor 21 Days (Routine) Timeframe: 1 Day Facility: [facility] - Location: Radiology Ordered By: Turner Landry Referrals: Beena Khan FNP [Primary Care Provider] - Darryl Meier [Family Provider] - 4-7 days (You will see Dr Hernández on October 18 at 1:20 pm. ) Seth Ovalles M.D [Physician] - 1 month Della Panchal FNP [Nurse Practitioner] - 1 week (if you don't hear from [facility] by tomorrow please call them th make a one week follow up with Della...[phone]) Discharge Diet: Cardiac Discharge Activity: Increase activity as tolerated Patient Instructions: Anticoagulation Therapy, Metoprolol (By mouth), Amlodipine (By mouth), Atorvastatin (By mouth), Apixaban (By mouth), A-fib (Atrial Fibrillation) (GEN), Chronic Hypertension (GEN), DASH Eating Plan (DC), Prevent Cardiovascular Disease (GEN), CHF Stoplight, Chest Pain Stoplight Activity Restrictions/Additional Instructions: Continue measures to prevent cardiovascular disease as discussed by cardiology and myself, and included in the instructions. Please continue to monitor blood pressures and heart rates at home, 2-3 times daily, write down values to bring to your appointment. Continue to work with your primary provider and crime scene photographer to minimize cardiovascular risks, optimize blood pressure control. Continue to work on improving diet and increasing exercise. Discharge Attestations Time Spent in Discharge Care*: greater than 30 min Quality Metrics Clinical Quality Measures [ No reported AMI, CVA or VTE this stay] Coding Level of Care Code Acute Code for [facility] Fwd Diagnoses Atrial fibrillation I48.91 Elevated troponin R77.8 Hypertension I10
--- NOTE | 2022-10-14 14:55 | PC.NURSE ---
called pt in regards on an order for an event monitor dr perdomo called this nurse to notify that he is putting an order for an event monitor per dr cordoba. called pt since she already left prior to this order. informed pt via her contact phone# on this order.
== END 2022-10-14 14:12 | disposition home or self-care (01) ==
LOC: ER 08:22 → CSU 09:00
PROVIDERS: Admitting Provider Student in an Organized Health Care Education/Training Program; Emergency Provider Family Medicine; Family Provider Physician Assistant Medical; PCP Family Medicine; Visit Provider Internal Medicine
DX: I48.91 Unspecified atrial fibrillation (principal); R77.8 Other specified abnormalities of plasma proteins; I10 Essential (primary) hypertension
CPT/HCPCS: 36415; 71045; 78452; 80053; 80061; 83036; 83880; 84443; 84484; 85025; 85378; 93005; 93017; 93306; 96372; 96375; 99285; A9500; G0378; J1650; J2785

== ENCOUNTER → 2022-10-30 12:09 | Outpatient (BNVA) | payer MEDICARE, OTHER, SELFPAY | PROVIDERS: Family Provider Physician Assistant Medical; PCP Family Medicine; Visit Provider Internal Medicine Cardiovascular Disease | DX: I10 Essential (primary) hypertension (principal); R77.8 Other specified abnormalities of plasma proteins; I48.91 Unspecified atrial fibrillation; Z79.01 Long term (current) use of anticoagulants | CPT/HCPCS: 99213 ==

== ENCOUNTER → 2022-12-19 12:47 | Outpatient (BNVA) | payer MEDICARE, OTHER, SELFPAY | PROVIDERS: Family Provider Physician Assistant Medical; PCP Family Medicine; Visit Provider Internal Medicine | DX: I10 Essential (primary) hypertension (principal); R77.8 Other specified abnormalities of plasma proteins; I48.91 Unspecified atrial fibrillation; Z79.01 Long term (current) use of anticoagulants | CPT/HCPCS: 99214 ==

== ENCOUNTER → 2023-01-14 11:03 | Outpatient (BNVA) | payer MEDICARE, OTHER, SELFPAY | PROVIDERS: Family Provider Physician Assistant Medical; PCP Family Medicine; Visit Provider Podiatrist Foot & Ankle Surgery | DX: M20.11 Hallux valgus (acquired), right foot; M20.41 Other hammer toe(s) (acquired), right foot | CPT/HCPCS: 73630; 99203 ==

== ENCOUNTER → 2023-07-09 10:37 | Outpatient (BNVA) | payer MEDICARE, OTHER, SELFPAY | PROVIDERS: Family Provider Physician Assistant Medical; PCP Family Medicine; Visit Provider Nurse Practitioner Family | DX: I48.0 Paroxysmal atrial fibrillation (principal); I10 Essential (primary) hypertension; Z79.01 Long term (current) use of anticoagulants | CPT/HCPCS: 99214 ==

== ENCOUNTER → 2024-01-08 14:20 | Outpatient (BNVA) | payer MEDICARE, OTHER, SELFPAY | PROVIDERS: Family Provider Physician Assistant Medical; PCP Family Medicine; Visit Provider Internal Medicine | DX: I10 Essential (primary) hypertension (principal); R77.8 Other specified abnormalities of plasma proteins; I48.0 Paroxysmal atrial fibrillation; Z79.01 Long term (current) use of anticoagulants | CPT/HCPCS: 99213 ==

== ENCOUNTER → 2024-08-11 08:07 | Outpatient (BNVA) | payer MEDICARE, OTHER, SELFPAY | PROVIDERS: Family Provider Physician Assistant Medical; PCP Family Medicine; Visit Provider Nurse Practitioner Family | DX: I48.0 Paroxysmal atrial fibrillation (principal); Z79.01 Long term (current) use of anticoagulants; I10 Essential (primary) hypertension | CPT/HCPCS: 99214 ==